=== PATIENT | male | born 1940 | race Hispanic/Latino ===

== ENCOUNTER 2020-07-11 15:47 | Emergency (ER) | payer MEDICARE ==
[2020-07-11] MEDS ORDERED: Proparacaine 0.5% Opth 15 ML BOT ONE (16:41)
--- NOTE | 2020-07-11 17:39 | CT ---
CT Brain WO Con History: Headache Comparison: None. Findings: There is very subtle increased density which is symmetric along the tentorium bilaterally. Subtle increased density along the anterior and posterior falx is relatively symmetric. No midline shift. No mass effect. Moderate microvascular ischemic changes. Paranasal sinuses and mastoids are clear. Impression: Mildly thickened hyperdense tentorium bilaterally as well as anterior and posterior falx falx concerning for underlying trace subdural hematoma given history. Follow-up CT brain in [address] Graves notified of findings via telephone at 5:36 PM
[2020-07-11 18:25] LABS: Prothrombin Time 13.3 sec (12.0-14.7)
[2020-07-11 18:29] LABS: #Eosinphils 0.1 thou/uL (0.0-0.7); #Lymphocytes 1.6 thou/uL (1.20-3.40); #Monocytes 0.6 thou/uL (0.11-0.59); #Neutrophils 11.6 thou/uL (1.40-6.50); %Basophils 0.1 % (0.0-1.0); %Eosinophils 0.7 % (0.0-10.0); %Lymphocytes 11.3 % (21.0-51.0); %Monocytes 4.4 % (0.0-10.0); %Neutrophils 83.4 % (42.0-75.0); Mean Corpuscular HGB CONC 34.1 g/dL (32.0-36.0); Mean Corpuscular Hemoglobin 31.1 pg (27.0-31.0); Mean Corpuscular Volume 91.3 fL (78.0-98.0); RBC Distribution Width 11.5 % (11.5-14.5); Red Blood Cell (RBC) Count 5.79 mill/uL (4.70-6.10); White Blood Cell (WBC) Count 13.9 thou/uL (4.8-10.8)
[2020-07-11 18:44] LABS: MDiff Complete? YES; Mean Platelet Volume 8.7 fL (7.4-10.4); Platelet Clumps MODERATE; Platelet Morphology Comment PLT clumps seen-ADEQ; Polychromasia SLIGHT = 2-3 cells (100X) (0-2/hpf)
[2020-07-11 18:46] LABS: AST (SGOT) 31 U/L (5-34); Bilirubin, Total 0.8 mg/dL (0.2-1.2); Calcium 9.1 mg/dL (7.8-10.44); Chloride 102 mmol/L (98-107); Sodium 136 mmol/L (136-145)
[2020-07-11 19:55] LABS: ALT (SGPT) 12 U/L (8-55); Alkaline Phosphatase 69 U/L (40-110); Anion Gap 15 mmol/L (10-20); BUN (Urea Nitrogen) 14 mg/dL (8.4-25.7); Calc. Creatinine Clearance 0 mL/min (70-130); Carbon Dioxide 23 mmol/L (23-31); Estimated GFR-MDRD Greater than 90; Globulin 3.1 g/dL (2.4-3.5); Glucose 95 mg/dL (83-110); Protein, Total 7.1 g/dL (5.8-8.1)
[2020-07-11 19:59] LABS: Potassium 3.1 mmol/L (3.5-5.1)
[2020-07-11] MEDS ORDERED: Nitroglycerin 2% Ointment 1 INCH/1 GM Packet ONE (20:30)
[2020-07-11] MEDS ORDERED: Aspirin Chewable 81 MG TAB ONE (20:30)
--- NOTE | 2020-07-11 21:45 | CT ---
CT Brain WO Con History: Follow-up hemorrhage Comparison: CT brain same day Findings: No significant size increase of was felt to be bilateral tentorium cerebelli subdural hemat omas. No intraparenchymal hemorrhage. No midline shift or mass effect. Calvarium is intact. Paranasal sinuses and mastoids are clear. Impression: No significant interval size increase of the small tentorial subdural hematomas.
[2020-07-11] MEDS ORDERED: Acetaminophen/Codeine 30-300mg Tablet ONE (22:12)
== END 2020-07-11 22:15 | disposition home or self-care (01) ==
LOC: ERS 15:47
DX: I62.00 Nontraumatic subdural hemorrhage, unspecified (principal); I10 Essential (primary) hypertension
CPT/HCPCS: 36415; 70450; 80053; 85025; 85610

== ENCOUNTER 2020-07-18 14:47 | Inpatient (IN) | payer MEDICARE, OTHER ==
--- NOTE | 2020-07-18 15:03 | CT ---
Exam: Head CT without contrast HISTORY: Stroke alert. Expressive and receptive aphasia. Last seen normal at 11:00 AM COMPARISON: 07/11/2020 FINDINGS: Hemorrhage: No intraparenchymal hemorrhage or extra-axial hematoma. Brain parenchyma: Cortical barker-white matter differentiation is preserved. No mass effect or midline shift. Basilar cisterns are patent.Chronic small vessel ischemic changes white matter. Ventricular system: Ventricles and sulci are patent and symmetric. Calvarium: Intact. Sinuses and mastoid air cells: Adequate aeration. Additional findings: Stable hyperdensity on the left and right tentorium. Given long-standing stable hyperdensity, the possibility of a subdural hematoma along the tentorium is less favored. IMPRESSION: 1. No acute intracranial process 2. Results study conveyed to Dr. Calles 07/18/2020 at 2:58 PM Code CR
[2020-07-18] MEDS ORDERED: Labetalol HCl 100 MG/20 ML VIAL ONE (15:19)
--- NOTE | 2020-07-18 15:26 | RAD ---
Exam: Chest one view HISTORY:Altered mental status. Stroke like symptoms. Comparison: None FINDINGS: Cardiac silhouette: Normal Aorta: Mild elongation. Atherosclerosis. Pulmonary vessels: Normal Costophrenic angles: Clear LUNGS: No masses or consolidation. Pneumothorax: None Osseous abnormalities: Moderate degenerative change involving the left and right shoulder. No acute o sseous abnormalities. IMPRESSION: 1. Moderate degenerative change in left and right shoulder 2. Atherosclerosis and elongation of the aorta.
[2020-07-18 15:36] LABS: #Basophils 0.1 thou/uL (0.0-0.2); #Eosinphils 0.1 thou/uL (0.0-0.7); #Lymphocytes 1.6 thou/uL (1.20-3.40); #Monocytes 0.5 thou/uL (0.11-0.59); #Neutrophils 4.5 thou/uL (1.40-6.50); %Basophils 1.1 % (0.0-1.0); %Eosinophils 1.3 % (0.0-10.0); %Lymphocytes 23.4 % (21.0-51.0); %Neutrophils 66.2 % (42.0-75.0); Hemoglobin 16.4 g/dL (14.0-18.0); Mean Corpuscular HGB CONC 35.7 g/dL (32.0-36.0); Mean Corpuscular Hemoglobin 32.2 pg (27.0-31.0); Mean Corpuscular Volume 90.1 fL (78.0-98.0); Mean Platelet Volume 7.3 fL (7.4-10.4); Platelet Count 138 thou/uL (130-400); RBC Distribution Width 11.4 % (11.5-14.5); Red Blood Cell (RBC) Count 5.09 mill/uL (4.70-6.10); White Blood Cell (WBC) Count 6.7 thou/uL (4.8-10.8)
[2020-07-18 15:45] LABS: PTT 31.1 sec (22.9-36.1); Prothrombin Time 13.3 sec (12.0-14.7)
[2020-07-18 15:52] LABS: Bilirubin Negative (Negative); Blood, Urine Negative (Negative); Clarity Clear (Clear); Glucose, Urine (Dipstick) Normal (Negative); Ketone, Urine Negative (Negative); Leukocyte Negative Leu/uL (Negative); Nitrite Negative (Negative); Protein, Urine (Dipstick) Negative (Neg-Trace); Specific Gravity, Urine 1.005 (1.002-1.036); Urobilinogen Normal mg/dL (Less than 2); pH, Urine 5.5 (5.0-9.0)
[2020-07-18 15:54] LABS: ALT (SGPT) 17 U/L (8-55); AST (SGOT) 19 U/L (5-34); Albumin 4.4 g/dL (3.4-4.8); Alkaline Phosphatase 71 U/L (40-110); Anion Gap 13 mmol/L (10-20); BUN (Urea Nitrogen) 14 mg/dL (8.4-25.7); Bilirubin, Total 0.8 mg/dL (0.2-1.2); Calc. Creatinine Clearance 0 mL/min (70-130); Calcium 9.9 mg/dL (7.8-10.44); Carbon Dioxide 28 mmol/L (23-31); Chloride 100 mmol/L (98-107); Estimated GFR-MDRD 74; Globulin 3.2 g/dL (2.4-3.5); Glucose 95 mg/dL (83-110); Lipase 20 U/L (8-78); Potassium 3.6 mmol/L (3.5-5.1); Protein, Total 7.6 g/dL (5.8-8.1); Sodium 137 mmol/L (136-145)
[2020-07-18] MEDS ORDERED: Aspirin Chewable 81 MG TAB ONE (16:14)
[2020-07-18] MEDS ORDERED: Ondansetron ODT 4 MG TAB PO PRN (17:31)
[2020-07-18] MEDS ORDERED: Acetaminophen 325 MG TAB PO PRN (17:32)
[2020-07-18] MEDS ORDERED: hydrALAZINE 20 MG/ML VIAL SLOW IVP PRN (17:33)
--- NOTE | 2020-07-18 18:08 | HP ---
PRIMARY CARE PROVIDER: PROMISE Meza CHIEF COMPLAINT: "I can't talk clear." HISTORY OF PRESENT ILLNESS: This is a 79-year-old male with history of hypertension and BPH, who presents to the emergency room with the above complaint. Most of the history is obtained from the patient's . She reports around noon today, lasting about an hour, that she had difficulty understanding what he was saying. She described it as "like he had marbles in his mouth." He also had confusion with trying to unfit his pants and voided on himself. She denies any precipitating factors or relieving factors. The patient simply said he could not. He was unable to speak, but is unable to provide any other details. The patient recently started 2 medications for his prostate, which are finasteride and tamsulosin. He has a history of a bladder tumor and is due for a cystoscopy with Dr. Bautista on 07/19. He was also told that he has an enlarged prostate. The patient and his deny any fevers. He was seen a week ago for headache on the right side of his head, that has been ongoing ever since. He denies any prior history. States that it has been mostly constant over the past week and describes it as stabbing quality above and behind his ear. In the emergency room, he was evaluated with a CT scan, which was considered abnormal with a question of a subdural hematoma. It was repeated 4 hours later and unchanged and the patient was discharged to home with Tylenol No. 3. He reports that the headache has been ongoing and he has taken 3 or 4 tablets of the Tylenol No. 3 since then. Because of the new onset changes in speech and confusion, the patient presented to the emergency room. While here, he received 324 mg of aspirin, 20 mg IV labetalol, underwent CT scan, which is unchanged compared to the , and hospitalist called for admission. ALLERGIES: NO KNOWN DRUG ALLERGIES. CURRENT MEDICATIONS: I called [facility] pharmacy to reconcile these. 1. Tylenol No. 3 as needed. 2. Finasteride 5 mg daily. 3. Sildenafil 100 mg daily as needed. 4. Tamsulosin 0.4 mg daily. 5. Atenolol and chlorthalidone 50 mg/25 mg once daily. 6. Meclizine 25 mg every 8 hours as needed. 7. Ondansetron 4 mg as needed. PAST MEDICAL HISTORY: 1. Hypertension. 2. BPH. PAST SURGICAL HISTORY: 1. Cataract. 2. Bladder tumor removal. SOCIAL HISTORY: The patient drinks 2 beers every evening; however, reports none in the past 2 months. He denies tobacco. He lives with his who is his surrogate decision maker and he is a full code. FAMILY HISTORY: Negative for stroke. REVIEW OF SYSTEMS: Positive for the headache as described above, flashers on the right side of his eye when he is outside, none present currently. Also positive for chills and ongoing difficulty with urination to include straining and dribbling. Negative for fevers, nausea, vomiting, abdominal pain, or change in bowel function. All remaining review of systems are reviewed and negative. PHYSICAL EXAMINATION: VITAL SIGNS: Blood pressure 131/73 after the labetalol, pulse 84, respirations 20, saturation 94% on room air, and temperature 99.1. GENERAL: Awake, alert, responsive, not in apparent distress. Able to speak in full sentences. HEENT: Pupils are equal and round. No scleral icterus. Oral mucosa is pink and moist. NECK: Supple and nontender. LYMPHATICS: No palpable cervical or supraclavicular lymphadenopathy. LUNGS: Clear to auscultation bilateral with good air movement. HEART: Normal S1 and S2. Regular rate and rhythm. No significant murmur. ABDOMEN: Soft with present bowel sounds. Nontender and nondistended. EXTREMITIES: No clubbing, cyanosis, or edema. VASCULAR: 2+ radial pulses. NEUROLOGIC STATUS: Cranial nerves 2 through 12 are intact. Strength 5/5 upper and lower extremities. No ankle clonus. 2+ patellar and brachioradialis reflexes. PSYCHIATRIC: Appears euthymic. DIAGNOSTIC STUDIES: CT scan today, personally reviewed, which shows no acute intracranial process, stable hyperdensity of the left and right tentorium. Given long-standing hyperdensity, the possibility of subdural hematoma is less favored. Chest x-ray, personally reviewed, no acute process, atherosclerosis and elongation of the aorta, moderate degenerative change in the left and right shoulder. CBC: 6.7, 16.4, 49.5, and 138. Coags: INR 1.0. Metabolic panel: 137, 3.6, 100, 28, 14, 0.98, and 95. LFTs are normal. Troponin negative. Ammonia 13. Urinalysis totally normal with a specific gravity of 1.005. EKG, personally reviewed, normal axis, normal intervals, no ST changes. IMPRESSION: 1. Transient aphasia with confusion, uncertain etiology. Differential diagnosis includes seizure, versus transient hypotension, versus headache that has been ongoing for a week versus transient ischemic attack. 2. Hypertension, unknown control. 3. Benign prostatic hypertrophy. 4. History of bladder tumor, that is status post removal. PLAN: 1. Observation status in the hospital. 2. TIA evaluation, which includes MRI, echocardiogram, carotid ultrasound. 3. Neurology consult, EEG given the wide differential as noted above. 4. We will use regular Tylenol for the headache and monitor, appreciate Neurology recommendations with regard to this as well. 5. Continuing the atenolol and chlorthalidone with hold parameters. Monitoring renal function. 6. We will continue the finasteride and tamsulosin, again with monitoring the blood pressures. 7. Lipid panel in the morning. 8. Daily aspirin. 9. Anticipated length of stay at this point is 24 hours. 10. DVT prophylaxis, the patient is ambulatory. 11. GI prophylaxis, not indicated. 12. Code status is full. Surrogate decision maker is the patient's . I reviewed the plan of care with the patient and his who demonstrate understanding and agree. No questions or further needs at the end of evaluation. The patient is at high risk given age, comorbidities, and current presentation. Job ID: [id number] MTDD
[2020-07-18] MEDS ORDERED: Ondansetron ODT 4 MG TAB SL PRN (18:45)
[2020-07-18] MEDS ORDERED: Ondansetron PF 4 MG/2 ML Vial IVP PRN (18:45)
--- NOTE | 2020-07-18 18:56 | ULT ---
Carotid arterial Doppler ultrasound: 07/18/2020 COMPARISON: None HISTORY: Transient ischemic attack TECHNIQUE: Multiplanar grayscale sonographic imaging of the arterial structures of the neck obtained with color flow and spectral analysis FINDINGS: Antegrade blood flow noted in the right carotid and vertebral system. There is extensive at herosclerotic calcification involving the proximal right ICA. Peak systolic velocity on the right is 50 cm/s within the CCA, 385 cm/s within the ICA, and 196 cm/s within the ECA. The left common carotid artery, external carotid artery and distal left ICA appear patent as does the left vertebral artery. Left vertebral artery demonstrates antegrade blood flow. No discrete blood flow could be documented within the left proximal and mid internal carotid artery w hich could signify focal occlusion or could be related to obscuration from heavily calcified plaque. Peak systolic velocity on the left is 101 cm/s within the common carotid artery, 110 cm/s within the internal carotid artery and 119 cm/s within the external carotid artery. The ICA/CCA ratio is 7.7 on the right and 1.0 on the left IMPRESSION: Markedly elevated velocity within the right internal carotid artery suggesting a severe d egree of stenosis, greater than 70%. Blood flow could not be confirmed within the proximal and mid left ICA. Further assessment with a CT angiogram of the neck is advised.
[2020-07-18 20:11] VITALS: BMI 30.8
[2020-07-19 04:58] LABS: Anion Gap 13 mmol/L (10-20); BUN (Urea Nitrogen) 15 mg/dL (8.4-25.7); Calc. Creatinine Clearance 78 mL/min (70-130); Calcium 9.4 mg/dL (7.8-10.44); Carbon Dioxide 26 mmol/L (23-31); Cardiac Risk 5.3 (Less than 4.5); Chloride 102 mmol/L (98-107); Cholesterol 226 mg/dl (< 200 Desired); Estimated GFR-MDRD 85; Glucose 107 mg/dL (83-110); HDL Cholesterol 43 mg/dL (>60 Neg Risk); LDL Cholesterol, Calculated 150 mg/dL; Potassium 3.3 mmol/L (3.5-5.1); Sodium 138 mmol/L (136-145); Triglycerides 167 mg/dL (Less than 150)
[2020-07-19] MEDS ORDERED: Non-Formulary Item 1 EACH (Atenolol/Chlorthalidone [Atenolol-Chlorthalidone 50-25] 1 EACH PO SCH (09:00)
[2020-07-19] MEDS ORDERED: FLU VACC QS2020-21(65YR UP)/PF 240 MCG/0.7 ML SYRINGE IM ONE (09:00)
[2020-07-19] MEDS: Chlorthalidone 25 MG TAB PO SCH (09:07)
[2020-07-19] MEDS: Tamsulosin HCl 0.4 MG CAP PO SCH (09:07)
[2020-07-19] MEDS: Finasteride 5 MG TAB PO SCH (09:07)
[2020-07-19] MEDS: Aspirin 325 mg Enteric Coated Tablet PO SCH (09:07)
[2020-07-19] MEDS: Atenolol 50 MG TAB PO SCH (09:08)
--- NOTE | 2020-07-19 09:30 | MRI ---
MRI OF BRAIN WITHOUT: INDICATION: TIA. FINDINGS: Mild to moderate cortical atrophy. Moderate to severe chronic ischemic white matter change. No evid ence of restricted diffusion. There is no evidence of acute infarct. There is no evidence of mass o r edema. The intracranial internal carotid arteries, cerebral arteries, and basilar arteries show expected alexandra w voids. Paranasal sinuses and mastoids appear clear. IMPRESSION: Moderate to severe chronic ischemic white matter change. No acute abnormality. POS: AH
[2020-07-19 11:04] LABS: SARS-CoV-2 MS2 Positive; SARS-CoV-2 N Gene Negative; SARS-CoV-2 S Gene Negative; SARS-CoV-2 by NAA Not Detected (NotDetected); SARS-CoV-2 orf1ab Negative
[2020-07-19] MEDS ORDERED: Iopamidol-370 76% 500 ML 1 ML ONE (11:16)
--- NOTE | 2020-07-19 11:54 | CON ---
NEUROLOGY CONSULTATION DATE OF CONSULTATION: 07/19/2020 REASON FOR CONSULTATION: Transient ischemic attack. HISTORY OF PRESENT ILLNESS: Mr. Iván Hoover is a 79-year-old male with history significant for hypertension and benign prostatic hyperplasia, presented to the emergency room with inability to talk. The patient is a poor historian and history is obtained from review of the medical records. Per , around noon yesterday, he had an episode lasting for an hour, during which she could not understand what he was saying and his speech was extremely slurred as if he had marbles in his mouth. He also has confusion and voided on himself. The denies focal weakness, focal paresthesias, nausea, vomiting, headache, chest pain, abdominal pain, recent illness, or recent exposure to COVID. The episode lasted for an hour and she decided to bring him to the emergency room for further evaluation. Head CT was done, which did not reveal any acute intracranial pathology. He was given aspirin and labetalol and admitted to the stroke floor for further evaluation. ALLERGIES: NO KNOWN DRUG ALLERGIES. REVIEW OF SYSTEMS: All systems were reviewed and were negative except the pertinent positives and negatives mentioned in the HPI. CURRENT MEDICATIONS: 1. Tylenol No. 3 as needed. 2. Finasteride 5 mg daily. 3. Sildenafil fail 100 mg daily as needed. 4. Tamsulosin 0.4 mg daily. 5. Atenolol and chlorthalidone 50 mg/25 mg once daily. 6. Meclizine 25 mg every 8 hours as needed. 7. Ondansetron 4 mg as needed. PAST MEDICAL HISTORY: 1. Hypertension. 2. BPH. PAST SURGICAL HISTORY: 1. Cataract. 2. Bladder tumor removal. SOCIAL HISTORY: The patient drinks 2 beers every evening. Denies smoking or illegal drug use. He is , lives with his . FAMILY HISTORY: There is no family history of stroke. PHYSICAL EXAMINATION: VITAL SIGNS: Blood pressure 130/70, pulse 80, respiratory rate 18. CVS: Regular rate and rhythm. CHEST: Clear. ABDOMEN: Soft. NECK: Supple. NEUROLOGIC: Mental status; the patient is alert, awake, and knows his name and place. Speech is clear. Motor; muscle tone and bulk are normal, moving all 4 extremities equally and symmetrically, strength 5/5 bilaterally. Sensory intact. Cranial nerves 2 through 12 intact. Cerebellar; finger-nose testing intact. Gait deferred due to the patient's safety reasons. DATA REVIEWED: I reviewed the labs, which essentially unremarkable. ASSESSMENT AND PLAN: Mr. Iván Hoover has been consulted for an episode of transient aphasia with confusion, which resolved on its own. Differential diagnosis includes transient ischemic attack versus transient hypertension. Seizure is also in the differential. EEG to rule out cortical irritability. MRI of the brain reviewed, which was negative for acute intracranial pathology. Carotid Dopplers showed marked elevated velocity within the right internal carotid artery, suggesting a severe stenosis greater than 70%. Blood flow could not be confirmed within the left ICA. CTA of the neck is suggested by Radiology for further evaluation. 2D echo pending. Continue telemetry. PT/OT/speech. Neuro checks every 4 hours. Continue aspirin and high-intensity statin for secondary stroke prevention. Continue home medications. Continue medical management per primary team. We will continue to follow. Thank you for the consult. Job ID: [id number] MTDD
--- NOTE | 2020-07-19 13:34 | PDOC.EEG ---
Neurology EEG Report - Report Report: This EEG was performed using 24 channel [employer] video digital EEG machine with 24 disc electrodes. This was an extended 2 hours 11 minutes of inpatient video EEG recording. Digital analysis of the EEG was done for Dale and seizure detection which revealed no abnormalities. Background: The posterior background rhythm was not observed. Photic stimulation: No significant response seen with photic stimulation. Hyperventilation: Not performed. EEG diagnosis: Intermittent irregular theta activity seen throughout the recording. Abscess of posterior background rhythm. Clinical interpretation: This EEG is consistent with moderate generalized nonspecific cerebral dysfunction.
--- NOTE | 2020-07-19 14:32 | CT ---
CTA NECK WITH CONTRAST WITH CONTRAST: Axial tomograms obtained following angio protocol with multiplanar reconstruction and 3D post process ing. INDICATION: Followup carotid Doppler study. That exam demonstrated increased velocities in the right internal ca rotid artery and also questioned flow in the left internal carotid artery. FINDINGS: There is atherosclerotic change with calcification in the aortic arch; however, no definite stenosis seen at the origin of the arch vessels. Both common carotid arteries show atherosclerotic changes with calcified plaque and soft plaque in th e mid common carotids. No significant common carotid artery stenosis. On the right, there is a large amount of soft plaque in the right bulb with peripheral calcification. This produces significant stenosis at the origin of the right internal carotid artery of greater th an 50% diameter. This extends superiorly, however, and above the origin is severe minimal stenosis w ith a string sign present indicating diameter stenosis of greater than 90%. The ICA above this area of severe stenosis on the right is patent and the intracranial portions of the right ICA are patent. There is atherosclerotic change seen in the cavernous right ICA without evidence of significant sten osis as visualized. Incidentally noted is significant stenosis as to the origin of the right external carotid artery as w ell. On the left side there is prominent calcified and soft plaque in the left bulb. Very dense calcified plaque is seen which probably inhibited adequate evaluation of the vessel on Doppler. This does res ult in mild stenosis at the left ICA proximally. The degree of stenosis appears to approach 50% diam eter by NASCET criteria. Above this area of stenosis on the left is patent and the intracranial port ion of the left ICA are patent without stenosis. Both vertebral arteries are patent and appear relatively symmetric. Left vertebral is mildly dominan t. Soft tissues: No soft tissue abnormality. Moderately severe degenerative changes in the cervical spine with posterior spondylosis resulting in central canal stenosis at C3-4, C4-5, and C5-6 levels. IMPRESSION: 1. 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 A tiny st ring sign is present. 2. Evidence of probable hemodynamically stenosis in the left internal carotid artery. Very dense ca lcified plaque inhibits adequate evaluation. Recommend assessment of lumen with a catheter angiogram . POS: GIOVANNA
[2020-07-19] MEDS ORDERED: Enoxaparin Sodium 80 MG/0.8 ML SYRINGE SC SCH (18:00)
[2020-07-19] MEDS: Rosuvastatin 20 MG TAB PO SCH (20:59)
[2020-07-20] MEDS ORDERED: Fentanyl 250 MCG/5 ML VIAL ONE (06:44)
[2020-07-20] MEDS ORDERED: Midazolam HCl 2 mg/2 ml Vial ONE (06:44)
[2020-07-20] MEDS ORDERED: Heparin 5,000 UNITS/ML VIAL ONE (07:05)
[2020-07-20] MEDS ORDERED: Protamine Sulfate 50 MG/5 ML VIAL ONE (07:05)
--- NOTE | 2020-07-20 07:23 | CON ---
DATE OF CONSULTATION: 07/19/2020 REQUESTING PHYSICIAN: Dr. Ibarra. PRIMARY CARE PHYSICIAN: Guillermina Fontanez. OTHER CONSULTING PHYSICIAN: Dr. Kristy Nicolas. CHIEF COMPLAINT: Garbled speech. HISTORY OF PRESENT ILLNESS: The patient is a 79-year-old man with hypertension. Sunday about a week ago, he had severe right-sided headache that was associated with seeing strange colors and some photophobia. The headache had not resolved by the next day and he presented to the emergency room. He apparently was kept through the course of the day. No specific cause could be identified and he was allowed to go home with prescription for Tylenol No. 4 as needed for pain. During the course of this past week, the intensity of the headache has waxed and waned and finally this morning it resolved. Yesterday, however, his noted an episode where he seemed confused and his speech was slurred and she describes it is him talking as if his mouth was full of marbles. This persisted and she estimates that it had been going on for about 30 minutes as she was taking him to the hospital by which time his symptoms were beginning to improve. They resolved not long after he was seen in the emergency room with that dysarthria lasting for about a couple of hours. He does not remember and she does not either noticing any localizing sensory or motor problems other than this difficulty speaking. She does not remember any facial droop, but she did note that she thought his face seemed puffy. PAST MEDICAL HISTORY: Significant for hypertension and benign prostatic hypertrophy. HOME MEDICATIONS: 1. Atenolol 50/chlorthalidone 25 mg once a day. 2. Flomax 0.4 mg a day. 3. Finasteride 5 mg a day. 4. Sildenafil 100 mg a day p.r.n., and he was recently started on Tylenol with codeine. 5. Meclizine 25 mg every 8 hours as needed. 6. Zofran 4 mg as needed. PAST SURGICAL HISTORY: Significant for bladder tumor removal and cataract surgery. The patient does not smoke. He reports about two beers a day drinking, but quit about 2 months ago. FAMILY HISTORY: Negative for any known history of stroke or coronary artery disease. REVIEW OF SYSTEMS: Negative for any antecedent headaches or focal eye, speech, facial, or extremity symptoms consistent with TIAs. Negative for any shortness of breath. Negative for any claudication. PHYSICAL EXAMINATION: GENERAL: He is a stocky man in no distress. VITAL SIGNS: He is 5 feet 3 inches, weighs 174 pounds. HEENT: He has no xanthelasma. He has no JVD. He has a faint right carotid bruit. CHEST: Clear to auscultation. HEART: He has regular rate and rhythm. ABDOMEN: Soft and nontender. NEUROLOGIC: Cranial nerves 2 through 12 and extremity strength are grossly intact. I was not able to palpate dorsalis pedis or posterior tibial pulses. EXTREMITIES: He has no clubbing, cyanosis, or edema. LABORATORY DATA: His white count is 6.7, hemoglobin 16.4, hematocrit 45.9, and platelets 138,000. PT was 13.3, INR 1.0, PTT 31.0. Electrolytes were normal. Glucose was 95, BUN 14, creatinine 0.98. LFTs were normal. Albumin is 4.4, calcium is 9.9. Lipase is 20. COVID was nonreactive. Chest x-ray showed no obvious cardiomegaly and some ectasia of his aorta with extensive aortic knob calcifications and calcifications in the descending aorta. He had multiple vessels versus granulomata and otherwise clear lung bruce. His brain CT showed no stroke or tumor. His MRI showed no stroke or tumor or vascular malformation. CT angiography showed some plaque in the left carotid system with perhaps a 40% or 50% lesion in the bulb and proximal internal carotid, but he had about a 2.5 cm length of his bulb in the internal carotid on the right side that was subtotally occluded corroborating the right-sided carotid velocities of 69, 385, and 180 in the internal carotid and 50, 42, and 40 in the common for a ratio of 7.76. On the left side, the heavy plaquing interfered with being able to identify proximal and mid ICA velocities. In the distal ICA, it was 110 with common carotid velocities of 101, and 73 for a ratio of 1.09. IMPRESSION AND RECOMMENDATIONS: I am not really quite sure how to explain the patient's initial symptoms of headache and visual disturbances manifest as seeing odd colors and some photophobia. He is certainly old to be having new onset migraines. His garbled speech would fit with a left hemispheric TIA, but he does not have any cervical disease on the left side that would be easy to blame for it. He has an extremely high-grade right carotid lesion in the neck, but it is probably a coincidental finding and does not have anything to do with any of his symptoms. It is, however, I think important and I would recommend endarterectomy, even though he is probably asymptomatic with respect to it. I am going to give him a full dose of Lovenox this evening and they have agreed after a long explanation to undergo right carotid endarterectomy (the patient's hesitance I think really has more to do with hoping that he would get to go home today rather than reluctance to have the operation). Postoperatively, he probably ought to get started on Plavix to deal with presumably intracranial source of left hemispheric TIA. Job ID: [id number]
[2020-07-20] MEDS ORDERED: Rocuronium Bromide 10 MG/ML (10ML VIAL) ONE (09:38)
[2020-07-20] MEDS ORDERED: PROPOFOL 200 MG/20 ML VIAL ONE (09:38)
[2020-07-20] MEDS ORDERED: Glycopyrrolate 0.2 MG/ML 5 ML SYRINGE ONE (09:38)
[2020-07-20] MEDS ORDERED: Ondansetron PF 4 MG/2 ML Vial ONE (09:38)
[2020-07-20] MEDS ORDERED: Acetaminophen 325 MG TAB PO PRN (12:00)
[2020-07-20] MEDS ORDERED: HYDROcodone/Acetaminophen 5/325 mg Tablet PO PRN ×2 (12:00)
[2020-07-20] MEDS ORDERED: Ondansetron PF 4 MG/2 ML Vial IVP PRN (12:00)
[2020-07-20] MEDS ORDERED: HYDROcodone/Acetaminophen 5/325 mg Tablet ONE (14:45)
--- NOTE | 2020-07-20 15:04 | OP ---
DATE OF PROCEDURE: 07/20/2020 PROCEDURE PERFORMED: Right carotid endarterectomy. PREOPERATIVE DIAGNOSIS: Right carotid stenosis. POSTOPERATIVE DIAGNOSIS: Right carotid stenosis. ANESTHESIA: General endotracheal anesthesia. INDICATIONS: The patient is a 79-year-old man, who about a week into an episode involving severe right sided headaches with photophobia, had an episode of garbled speech. The episode of dysarthria only lasted an hour or two and his headache resolved the following day. CT and MRI showed no evidence of stroke, tumor, or vascular malformation. CT carotid ultrasonography and CT angiography demonstrated plaque without any significant stenosis in the left carotid system, but a long subtotal stenosis of the right internal carotid. After discussing with him and his that this is apt to represent a coincidental finding rather than having played any real role in his spectrum of symptoms. He is now taken to the operating room for right carotid endarterectomy for presumably high-grade asymptomatic stenosis. FINDINGS: Subtotal stenosis with a hemorrhagic soft plaque starting in the carotid bulb and extending 1.5 or 2 cm into the internal carotid artery. Good ICA back bleeding. Shunt time was 16 minutes. Post-shunt clamp time was 3 minutes. NARRATIVE REPORT: After informed consent was obtained, the patient was taken to the operating room, placed in supine position on the operating table. After the induction of general anesthesia, the patient's neck was extended and rotated toward the left. His right neck was then prepped and draped in sterile fashion. An oblique incision was made in the skin crease on the right neck using the scalpel and the electrocautery. The dissection was carried through the subcutaneous tissue and platysma anterior to the sternocleidomastoid muscle and internal jugular vein. The facial vein and other tributaries to the jugular system crossing the operative field were ligated and divided. The common carotid artery was dissected free from the sheath and the vagus nerve and looped with a vessel loop. The dissection was carried distally. Bridging veins were ligated and divided to allow for medial reflection of the external carotid system which was looped with a vessel loop. The hypoglossal nerve was identified and the sling vessels were ligated and divided. The dissection was carried well beyond the level of the hypoglossal nerve and digastric muscle to allow for adequate exposure of a relatively normal appearing and soft internal carotid artery beyond the plaquing. The carotid system was teased free from the vagus nerve and the patient was heparinized. After adequate circulation time of heparin, the internal carotid, common carotid, and external carotid systems were sequentially occluded. A longitudinal arteriotomy was made in the distal common carotid artery and extended proximally and distally with Durham scissors. The stenosis was subtotal and much of the incision was made through the soft plaque until breaking free into a lumen distally at the internal carotid artery beyond the stenosis. An endarterectomy plane was developed at the distal common carotid level with the tips of Durham scissors and then developed with an elevator. Plaque was transected at the common carotid level, everted from the external carotid system and then broken off distally in the internal carotid. The distal feather was tailored and the proximal transection point was inspected and tailored. The endarterectomy bed was forcefully irrigated, paying particular attention to the proximal transection and distal feather points and intraluminal carotid shunt was inserted first distally in the internal carotid and then proximally in the common carotid, aspirating on the side port of the shunt before allowing antegrade flow through it into the internal carotid system. The endarterectomy bed was then serially inspected, debrided and irrigated until no more mobile debris remained. The arteriotomy was then sewn from either apex with running 6-0 Prolene suture with about a half a centimeter of arteriotomy left to sew at the common carotid level. The shunt was clamped and removed with vascular control being re-established on the origin of the internal carotid and on the common carotid with vessel loops. The remaining arteriotomy was sewn. The vessels were forward and back bled to allow for flushing of any air or residual debris out the arteriotomy or into the external carotid system. Suture line was secured and antegrade flow was allowed first into the external carotid and then into the internal carotid. The suture line was inspected for hemostasis, which appeared to be grossly adequate. The wound was packed off with a sponge. After several minutes, the packing was removed and some scant amount of bleeding from the dissection bed and the adventitia of the vessel away from suture line were controlled with the electrocautery. The wound was packed off again and after a few more minutes, removed and the wound inspected with hemostasis adequate. The platysma was reapproximated with running 3-0 Vicryl and the skin was closed with a running 4-0 Vicryl subcuticular suture and Steri-Strips. The wound was dressed. The patient was extubated in the operating room and taken to the recovery area in good condition, moving all extremities to command. Job ID: [id number]
[2020-07-20] MEDS: Aspirin 325 mg Enteric Coated Tablet PO SCH (22:32)
[2020-07-20] MEDS: Atenolol 50 MG TAB PO SCH (22:32)
[2020-07-20] MEDS: Chlorthalidone 25 MG TAB PO SCH (22:33)
[2020-07-20] MEDS: Finasteride 5 MG TAB PO SCH (22:33)
[2020-07-20] MEDS: Tamsulosin HCl 0.4 MG CAP PO SCH (22:34)
[2020-07-20] MEDS: Sodium Chloride 0.9% 1,000 ML IV SCH ×2 (22:34→22:35)
[2020-07-20] MEDS: Rosuvastatin 20 MG TAB PO SCH (22:34)
[2020-07-21] MEDS: Aspirin 325 mg Enteric Coated Tablet PO SCH (08:50)
[2020-07-21] MEDS: Finasteride 5 MG TAB PO SCH (08:51)
[2020-07-21] MEDS: Atenolol 50 MG TAB PO SCH (08:51)
[2020-07-21] MEDS: Tamsulosin HCl 0.4 MG CAP PO SCH (08:51)
[2020-07-21] MEDS: Chlorthalidone 25 MG TAB PO SCH (08:51)
[2020-07-21] MEDS: Sodium Chloride 0.9% 1,000 ML IV SCH (08:53)
[2020-07-21] MEDS ORDERED: Clopidogrel Bisulfate 75 MG TAB PO SCH (09:15)
[2020-07-21 11:43] VITALS: BP 132/64; TEMP 97.8
--- NOTE | 2020-07-21 15:26 | DIS ---
DATE OF ADMISSION: 07/19/2020 DATE OF DISCHARGE: 07/21/2020 DISCHARGE DISPOSITION: Home. PRIMARY DISCHARGE DIAGNOSES: 1. Severe carotid stenosis on the right, status post right carotid endarterectomy. 2. Transient ischemic attack with confusion on arrival, resolved. SECONDARY DISCHARGE DIAGNOSES: 1. Benign prostatic hypertrophy. 2. Hypertension. 3. Dyslipidemia. PROCEDURES DONE DURING HOSPITALIZATION: CT brain done on the day of admission showed no acute intracranial process. MRI without contrast done showed [id number] chronic ischemic white matter change. No acute abnormality was seen. CT angio of the neck showed high-grade critical stenosis in the right internal carotid artery of greater than 90%. A tiny string sign is present. There is also hemodynamically significant stenosis in the left internal carotid artery. Very dense calcified plaque inhibits adequate evaluation. Echo with 2D Doppler showed ejection fraction of 55% to 60%. There was diastolic dysfunction. The patient had right carotid endarterectomy done on 07/20/[address] Mack. DISCHARGE MEDICATIONS: 1. Aspirin 81 mg p.o. daily. 2. Plavix 75 mg p.o. daily. 3. Crestor 40 mg p.o. at bedtime. 4. Tylenol 3 p.r.n. 5. Flomax 0.4 mg p.o. daily. 6. The patient started using sildenafil after 10 days. 7. Finasteride 5 mg p.o. daily. 8. Atenolol with chlorthalidone 50/25 mg one tablet daily. ALLERGIES: NO KNOWN DRUG ALLERGIES. DISCHARGE PLAN: The patient to follow up with Dr. Mack in 2 weeks. He needs to follow up with his nurse practitioner, primary care physician, Guillermina Fontanez. BRIEF COURSE DURING HOSPITALIZATION: The patient initially came to the ER after his brought him for episodes of confusion and unable to communicate. Mr. Minor was admitted to stroke unit and has had complete stroke workup done. He has had CT brain and MRI brain, which did not reveal any acute infarct. Carotid Doppler showed significant stenosis on the right internal carotid artery and a CT angio of the neck was obtained. This confirmed more than 90% critical stenosis of the right carotid artery in the ICA portion. Vascular surgical consult with Dr. Mack was obtained. He has had successful endarterectomy on the right side. The patient likely will need the same procedure on his left side and will follow up with Dr. Mack in the outpatient setting. He is hemodynamically stable, ambulating and eating well prior to discharge. Please note, I have seen and examined the patient on the day of discharge. Job ID: [id number]
[2020-07-22] MEDS ORDERED: Clopidogrel Bisulfate 75 MG TAB PO SCH (09:00)
--- NOTE | 2020-07-23 03:55 | PQF ---
CLINICAL DOCUMENTATION CLARIFICATION FORM: Dear : Ethan Ibarra Date / Time: 07/23/20202 Please exercise your independent, professional judgment in responding to the clarification form. Clinical indicators are provided on the bottom of this form for your review Please check appropriate box(es): [ ] Encephalopathy: Etiology: [ ] Metabolic [ ] Toxic [ ] Unspecified [ ] Other (please specify) [ x ] Transient Alteration of Awareness [ ] Other diagnosis [ ] Unable to determine In addition, please specify: Present on Admission (POA): [ x ] Yes [ ] No [ ] Unable to determine Physician Signature: Date/Time: For continuity of documentation, please document condition throughout progress notes and discharge summary. Thank You. To be completed by CDI/Coding staff for physician review: Present Clinical Indicators - Signs / Symptoms / Labs Results and Location in Medical Record [X] BP 163/78, Pylse 94, Resp 20, Temp 98.2 Vital signs 07/18 [X] EEG Impression: Consistent with moderate generalized nonspecific cerebral dysfunction Procedure Dr Wagner 07/19 [X] He had confusion with trying to unfit his pants and voided himself H&P p1 07/19 Dr Larose [X] Transient aphasia with confusion, uncertain etiology H&P p3 07/19 Dr Larose Present Risk Factors Results and Location in Medical Record [X] 79 year-old Male H&P p1 07/19 Dr Larose [X] HTN H&P p1 07/19 Dr Larose [X] TIA H&P p3 07/19 Dr Larose [X] Carotid stenosis s/p Endarterectomy Operative report Dr Mack 07/20 Present Treatments Results and Location in Medical Record [X] IVF NS 1L MAR 07/18 [X] Neurology Consult Consult Dr Nicolas 07/19 [X] MRI Brain Imaging Dr Christopher 07/19 [X] CT Brain Imaging Dr Garcia 07/18 [X] EEG Procedure Dr Wagner 07/19 [ ] CDS/Chop Saw Operator Signature: Aishwarya Jasminepascual Phone #: ext [phone] Date/Time: 07/23/20206 This is a permanent part of the Medical Record [facility]
== END 2020-07-21 12:55 | disposition home or self-care (01) | DRG 39 ==
LOC: ERS 14:47 → 2SE 17:21 → OBSVTOIN 07-19 17:19 → CCU 07-20 09:52 → 2NO 07-20 22:26
PROVIDERS: ADMIT Family Medicine; ATTEND Family Medicine
PROC: 03CK0ZZ Extirpation of Matter from Right Internal Carotid Artery, Open Approach (ICD-10-PCS; principal; 2020-07-20)
DX: G45.9 Transient cerebral ischemic attack, unspecified (principal); I65.21 Occlusion and stenosis of right carotid artery; N40.0 Benign prostatic hyperplasia without lower urinary tract symptoms; I10 Essential (primary) hypertension; E78.5 Hyperlipidemia, unspecified; Z20.828 Contact with and (suspected) exposure to other viral communicable diseases; R40.4 Transient alteration of awareness; Z79.899 Other long term (current) drug therapy; Z98.49 Cataract extraction status, unspecified eye
CPT/HCPCS: 36415; 70450; 70498; 70551; 71045; 80048; 80053; 80061; 81003; 82140; 83690; 84484; 85025; 85610; 85730; 87086; 87635; 93005; 93306; 93880; 94640; 95712; 95819; 95957; 96374; G0378; J0690; J1642; J1644; J1650; J2250; J2405; J2704; J2720; J3010; J7620; Q9967; U0003

== ENCOUNTER 2020-08-13 15:40 | Outpatient (CLI) | payer MEDICARE, OTHER ==
--- NOTE | 2020-08-13 16:43 | CT ---
CT BRAIN NONCONTRAST: DATE: 08/13/2020 HISTORY: 79-year-old male with headache. Follow-up subdural hematoma. COMPARISON: CTs of 07/11/2020 and 07/18/2020. FINDINGS: There is no evidence of acute intra-axial or extra-axial hemorrhage. There is no midline shift or any other mass effect. There is no extra-axial fluid collection. There is no evidence of obstructive hydrocephalus. Calvarium is intact. There is diffuse brain parenchymal volume loss. There are low att enuation areas in the white matter. These are nonspecific, but in a patient of this age, they are probably chronic ischemic white matter changes due to microvascular atherosclerosis. Again noted is t he diffuse symmetrical hyperdensity of the entire tentorium cerebelli, as well as the anterior and posterior interhemispheric falx. This is unchanged since 07/11/2020. Furthermore, on the gradient ech o sequence of the MRI of 07/19/2020, there is no evidence of hemorrhage along the tentorium or anywhere else. Therefore, this is not a subdural hematoma. There is an approximately 8 x 8 mm very ir regularly-shaped sclerotic lesion at the left side of the body of the sphenoid bone, just posterior to the sphenoid sinus. It has hypointense signal intensity on T2 WI and FLAIR, and low to intermediat e signal intensity on T1 WI. The sphenoid, ethmoid, frontal, and upper portions of maxillary sinuses, are clear. Bilateral tympanomastoid cavities are clear. There has been no interval change ov erall. IMPRESSION: 1) No acute intracranial findings. 2) involutional changes and chronic ischemic white matter changes. 3) no subdural hematoma. 4) small sclerotic lesion in the sphenoid bone: Bone island versus osteoblastic metastasis. Recommend nuclear medicine whole body bone scan to search for other lesions elsewhere in the skeleton that would support the diagnosis of metastatic bone disease. Recommend correlation with serum PSA levels.
== END 2020-08-13 15:41 | disposition home or self-care (01) ==
LOC: BICCT 15:40
PROVIDERS: ATTEND Surgery
DX: S06.5X9D Traumatic subdural hemorrhage with loss of consciousness of unspecified duration, subsequent encounter (principal); M89.8X8 Other specified disorders of bone, other site
CPT/HCPCS: 70450

== ENCOUNTER 2020-09-06 09:38 | Outpatient (CLI) | payer MEDICARE, OTHER ==
--- NOTE | 2020-09-06 16:09 | NM ---
WHOLE BODY BONE SCAN WITH SPECT CT IMAGES OF THE CALVARIUM: Date: 09/06/2020 HISTORY: 80-year-old male with sclerotic focus in the sphenoid bone on the CT scan of 08/13/2020. Sphenoid mas s, headache. RADIOPHARMACEUTICAL: 32.7 mCi technetium-99m MDP injected intravenously. FINDINGS: There is increased tracer localization in the sclerotic focus in the sphenoid bone noted on the CT sc an. Increased uptake in the mandible is consistent with periodontal disease. Increased uptake in the shou lders is consistent with degenerative change. No other abnormal areas of tracer localization are seen . Tracer excretion through the kidneys is within normal limits. Increased uptake in the feet is consi stent with degenerative change. IMPRESSION: Sclerotic focus in the sphenoid bone demonstrates increased tracer uptake and may be due to a metasta tic focus. No other suspicious lesions are seen. POS: OFF
== END 2020-09-06 09:39 | disposition home or self-care (01) ==
LOC: NM 09:38
PROVIDERS: ATTEND Surgery
DX: R22.0 Localized swelling, mass and lump, head (principal); R51.9 Headache, unspecified
CPT/HCPCS: 78306; A9503

== ENCOUNTER 2022-10-31 10:49 | Observation (INO) | payer OTHER ==
[2022-10-31] MEDS ORDERED: SUGAMMADEX SODIUM 200 MG/2 ML VIAL ONE (12:52)
[2022-10-31] MEDS ORDERED: Fentanyl 100 MCG/2 ML VIAL ONE (12:52)
[2022-10-31 12:53] LABS: Anion Gap 13 mmol/L (10-20); BUN (Urea Nitrogen) 14 mg/dL (8.4-25.7); Calc. Creatinine Clearance 68 mL/min (70-130); Calcium 9.6 mg/dL (7.8-10.44); Carbon Dioxide 33 mmol/L (23-31); Chloride 97 mmol/L (98-107); Estimated GFR 87; Glucose 117 mg/dL (83-110); Potassium 3.5 mmol/L (3.5-5.1); Sodium 139 mmol/L (136-145)
[2022-10-31 12:57] LABS: SARS-CoV-2 NAA Rapid Test Not Detected (NotDetected)
[2022-10-31] MEDS ORDERED: mitoMYcin 40 MG in Sodium Chloride 0.9% 40 ML I-VESIC SCH (13:00)
[2022-10-31] MEDS ORDERED: Ondansetron PF 4 MG/2 ML Vial ONE (13:27)
[2022-10-31] MEDS ORDERED: Rocuronium Bromide 10 MG/ML (10ML VIAL) ONE (13:27)
[2022-10-31] MEDS ORDERED: Lidocaine 1% PF 5 ML VIAL ONE (13:27)
[2022-10-31] MEDS ORDERED: Dexamethasone 20 MG/5 ML VIAL ONE (13:27)
[2022-10-31] MEDS ORDERED: PROPOFOL 200 MG/20 ML VIAL ONE (13:27)
[2022-10-31] MEDS ORDERED: Hyoscyamine SL 0.125 MG TAB SL PRN (17:27)
[2022-10-31] MEDS ORDERED: traMADol HCl 50 MG TAB PO PRN (17:29)
[2022-10-31] MEDS: Ciprofloxacin 500 MG TAB PO SCH (21:02)
[2022-10-31 21:08] VITALS: BMI 28.9
[2022-11-01] MEDS: Ciprofloxacin 500 MG TAB PO SCH (05:45)
[2022-11-01] MEDS ORDERED: Atenolol 50 MG TAB PO SCH (09:00)
[2022-11-01] MEDS ORDERED: Non-Formulary Item 1 EACH (Atenolol/Chlorthalidone [Atenolol-Chlorthalidone 50-25] 1 EACH PO SCH (09:00)
[2022-11-01] MEDS ORDERED: FLU VACC QS2022-23(65YR UP)/PF 240 MCG/0.7 ML SYRINGE IM ONE (09:00)
[2022-11-01] MEDS ORDERED: Chlorthalidone 25 MG TAB PO SCH (09:00)
[2022-11-01 12:17] VITALS: TEMP 98
[2022-11-01] MEDS ORDERED: NIFEdipine 10 MG CAP PO SCH (12:30)
[2022-11-01] MEDS ORDERED: NIFEdipine XL 30 MG TAB PO SCH (13:00)
[2022-11-01 16:00] VITALS: BP 177/74
== END 2022-11-01 15:30 | disposition home or self-care (01) ==
LOC: SDC 10:49 → SURG B 17:14
PROVIDERS: ADMIT Urology; ATTEND Urology
PROC: 0TBB8ZZ Excision of Bladder, Via Natural or Artificial Opening Endoscopic (ICD-10-PCS; principal; 2022-10-31)
PROC: 0VB07ZZ Excision of Prostate, Via Natural or Artificial Opening (ICD-10-PCS; 2022-10-31)
PROC: 3E0K805 Introduction of Other Antineoplastic into Genitourinary Tract, Via Natural or Artificial Opening Endoscopic (ICD-10-PCS; 2022-10-31)
DX: C67.0 Malignant neoplasm of trigone of bladder (principal); N40.0 Benign prostatic hyperplasia without lower urinary tract symptoms; R31.0 Gross hematuria; I10 Essential (primary) hypertension; I73.9 Peripheral vascular disease, unspecified; E78.5 Hyperlipidemia, unspecified; Z79.2 Long term (current) use of antibiotics; Z79.82 Long term (current) use of aspirin; Z79.899 Other long term (current) drug therapy; Z20.822 Contact with and (suspected) exposure to COVID-19
CPT/HCPCS: 51720; 52235; 52601; 80048; 85018; A4311; G0378 ×2; J9280; U0002; 36415; 88305; 88307; 88342; J1100; J2405; J2704; J3010

== ENCOUNTER 2022-11-27 06:00 | Day surgery (SDC) | payer OTHER ==
[2022-11-24 11:02] VITALS: BMI 28.3
[2022-11-27] MEDS ORDERED: Sodium Chloride 0.9% 100 ML ONE (07:00)
[2022-11-27] MEDS ORDERED: CEFAZOLIN 2 GM VIAL ONE (07:00)
[2022-11-27] MEDS ORDERED: Fentanyl 100 MCG/2 ML VIAL ONE (07:14)
[2022-11-27] MEDS ORDERED: Ondansetron PF 4 MG/2 ML Vial ONE (07:37)
[2022-11-27] MEDS ORDERED: PROPOFOL 200 MG/20 ML VIAL ONE (07:37)
[2022-11-27] MEDS ORDERED: Lidocaine 1% PF 5 ML VIAL ONE (07:37)
[2022-11-27] MEDS ORDERED: Rocuronium Bromide 10 MG/ML (10ML VIAL) ONE (07:37)
[2022-11-27] MEDS ORDERED: SUGAMMADEX SODIUM 200 MG/2 ML VIAL ONE (08:24)
== END 2022-11-27 10:00 | disposition home or self-care (01) ==
LOC: SDC 06:00
PROVIDERS: ATTEND Urology
PROC: 0TBB8ZZ Excision of Bladder, Via Natural or Artificial Opening Endoscopic (ICD-10-PCS; principal; 2022-11-27)
DX: N32.89 Other specified disorders of bladder (principal); N35.911 Unspecified urethral stricture, male, meatal; I10 Essential (primary) hypertension; G47.33 Obstructive sleep apnea (adult) (pediatric); Z85.51 Personal history of malignant neoplasm of bladder; Z79.82 Long term (current) use of aspirin; Z79.899 Other long term (current) drug therapy
CPT/HCPCS: 88307; J2405; J2704; J3010; J3490

== ENCOUNTER 2023-03-12 05:49 | Day surgery (SDC) | payer MEDICARE ==
[2023-03-07 10:16] VITALS: BMI 27.4
[2023-03-12] MEDS ORDERED: fentaNYL PF 100 MCG/2 ML SYRINGE ONE (06:43)
[2023-03-12] MEDS ORDERED: SUGAMMADEX SODIUM 200 MG/2 ML VIAL ONE (06:44)
[2023-03-12] MEDS ORDERED: Iopamidol 30 ML ONE (07:14)
[2023-03-12] MEDS ORDERED: Levofloxacin 500 mg/D5W 100 ml Premix Bag ONE (07:25)
[2023-03-12] MEDS ORDERED: Lidocaine 1% PF 5 ML VIAL ONE (07:32)
[2023-03-12] MEDS ORDERED: ePHEDrine Sulfate 50 MG/10 ML VIAL ONE (07:32)
[2023-03-12] MEDS ORDERED: Ondansetron PF 4 MG/2 ML Vial ONE (07:32)
[2023-03-12] MEDS ORDERED: Rocuronium Bromide 10 MG/ML (10ML VIAL) ONE (07:32)
[2023-03-12] MEDS ORDERED: PROPOFOL 200 MG/20 ML VIAL ONE (07:32)
[2023-03-12] MEDS ORDERED: Morphine Sulfate 2 MG/ML SYRINGE SLOW IVP PRN (07:58)
[2023-03-12] MEDS ORDERED: Promethazine HCl 25 MG/ML VIAL IM PRN (07:58)
[2023-03-12] MEDS ORDERED: Ondansetron HCl/PF 4 MG/2 ML Vial IVP PRN (07:58)
== END 2023-03-12 09:52 | disposition home or self-care (01) ==
LOC: SDC 05:49
PROVIDERS: ATTEND Urology
PROC: 0TBB8ZX Excision of Bladder, Via Natural or Artificial Opening Endoscopic, Diagnostic (ICD-10-PCS; principal; 2023-03-12)
PROC: BT14YZZ Fluoroscopy of Kidneys, Ureters and Bladder using Other Contrast (ICD-10-PCS; 2023-03-12)
DX: N30.30 Trigonitis without hematuria (principal); Z85.51 Personal history of malignant neoplasm of bladder
CPT/HCPCS: 52005; 52204; 74420; C1769; 88305; J1956; J2405; J2704; Q9967

== ENCOUNTER 2025-06-17 12:34 | Outpatient (CLI) | payer MEDICARE, OTHER ==
[2025-06-17 14:16] LABS: #Basophils Less than 0.03 10x3/uL (0.0-0.2); #Eosinophils 0.03 10x3/uL (0.0-0.7); #Monocytes 0.46 10x3/uL (0.11-0.59); #Neutrophils 4.60 10x3/uL (1.40-6.50); %Basophils 0.3 % (0.0-1.0); %Eosinophils 0.5 % (0.0-10.0); %Lymphocytes 20.9 % (21.0-51.0); %Monocytes 7.1 % (0.0-10.0); %Neutrophils 70.6 % (42.0-75.0); Hematocrit 43.5 % (42.0-52.0); Hemoglobin 15.0 g/dL (14.0-18.0); Mean Corpuscular Hemoglobin 30.5 pg (27.0-31.0); Mean Corpuscular Volume 88.4 fL (78.0-98.0); Platelet Count 163 10x3/uL (130-400); Red Blood Cell (RBC) Count 4.92 mill/uL (4.70-6.10); White Blood Cell (WBC) Count 6.51 10x3/uL (4.8-10.8)
[2025-06-17 14:30] LABS: INR-International Normal Ratio 1.1; Prothrombin Time 14.4 sec (12.0-14.7)
[2025-06-17 14:31] LABS: PTT 32.8 sec (22.9-36.1)
[2025-06-17 14:45] LABS: Anion Gap 17 mmol/L (10-20); BUN (Urea Nitrogen) 17 mg/dL (8.4-25.7); Calc. Creatinine Clearance 0 mL/min (70-130); Calcium 9.7 mg/dL (7.8-10.44); Carbon Dioxide 30 mmol/L (23-31); Chloride 97 mmol/L (98-107); Glucose 118 mg/dL (83-110); Potassium 2.5 mmol/L (3.5-5.1); Sodium 141 mmol/L (136-145)
== END 2025-06-17 12:35 | disposition home or self-care (01) ==
LOC: LABBT 12:34
PROVIDERS: ATTEND Urology
DX: Z01.818 Encounter for other preprocedural examination (principal); C67.0 Malignant neoplasm of trigone of bladder
CPT/HCPCS: 80048; 85025; 85610; 85730; 87086; 93005; 93010